=== PATIENT | female | born 1930 | race Caucasian/White ===

== ENCOUNTER 2018-06-18 11:21 | Emergency (ER) | payer OTHER ==
[~2018-06-18] VITALS: Ht 162.6 cm; Wt 52.3 kg
[2018-06-18] MEDS ORDERED: TRAM50TA4 PO (11:40)
[2018-06-18] MEDS ORDERED: PROC10TA13 PO (11:40)
[2018-06-18] MEDS ORDERED: LORA0.5T83 PO (11:40)
[2018-06-18] MEDS ORDERED: HALO5L PO ×2 (11:40)
[2018-06-18] MEDS ORDERED: DEXA4TAB PO (11:40)
[2018-06-18] MEDS ORDERED: MECLIZINE HCL 25 MG TABLET PO ONE (12:00)
[2018-06-18] MEDS ORDERED: ACETAMINOPHEN 325 MG TABLET PO ONE (12:00)
[2018-06-18 12:17] LABS: BASOPHILS % (AUTO) 0.1 % (0.0-2.0); EOSINOPHILS % (AUTO) 0.7 % (1.0-6.0); HEMATOCRIT 37.4 % (36-46); HEMOGLOBIN 13.2 g/dL (12.0-16.0); LYMPHOCYTES # (AUTO) 0.2 K/uL (1.0-4.8); MEAN CORPUSCULAR HEMOGLOBIN 30.4 pg (26.0-34.0); MEAN CORPUSCULAR HGB CONC 35.2 G/dL (31.0-37.0); MEAN CORPUSCULAR VOLUME 86 fL (80-100); MONOCYTES # (AUTO) 0.3 K/uL (0.1-1.0); MONOCYTES % (AUTO) 3.4 % (2.0-9.0); NEUTROPHILS # (AUTO) 8.1 K/uL (1.8-7.7); PLATELET COUNT (AUTO) 77 K/uL (150-450); RED BLOOD CELL COUNT(AUTO) 4.33 MIL/uL (4.00-5.20); RED CELL DISTRIBUTION WIDTH 15.4 % (11.5-14.5)
[2018-06-18 12:23] LABS: ANION GAP 5 mmol/L (8-16); CALCIUM, TOTAL 7.9 mg/dL (8.8-10.5); CARBON DIOXIDE 25 mmol/L (22-29); CHLORIDE 95 mmol/L (98-107); GLOMERULAR FILTR. RATE CALC > 60 mL/min (>60); GLUCOSE,RANDOM 136 mg/dL (70-110); POTASSIUM 4.3 mmol/L (3.5-5.1); SODIUM SERUM 125 mmol/L (136-145); UREA NITROGEN, BLOOD 17 mg/dL (7-18)
[2018-06-18 12:33] LABS: NEUTROPHILS % (AUTO) 93.8 % (40.0-70.0)
[2018-06-18 13:20] VITALS: BP 125/69
== END 2018-06-18 13:30 | disposition home or self-care (01) ==
LOC: EMS 11:22
DX: R42 Dizziness and giddiness (principal); R10.84 Generalized abdominal pain; R51 Headache; F41.9 Anxiety disorder, unspecified; Z85.42 Personal history of malignant neoplasm of other parts of uterus
CPT/HCPCS: 70450; 93005; 99285